=== PATIENT | female | born 1945 | race Caucasian/White ===

== ENCOUNTER 2018-04-11 12:47 | Inpatient (IN) | payer MEDICARE, BC ==
[2018-04-11] MEDS ORDERED: CEFAZOLIN 2 GM/50 ML BAG ONE (14:41)
[2018-04-11] MEDS ORDERED: Morphine 4 MG/ML VIAL ONE (15:41)
[2018-04-11] MEDS ORDERED: Fentanyl 100 MCG/2 ML VIAL ONE ×4 (16:02→18:30)
[2018-04-11] MEDS ORDERED: PROPOFOL 200 MG/20 ML VIAL ONE (16:33)
[2018-04-11] MEDS ORDERED: Ondansetron PF 4 MG/2 ML Vial ONE (16:33)
[2018-04-11] MEDS ORDERED: Lidocaine 1% PF 5 ML VIAL ONE (16:33)
[2018-04-11] MEDS ORDERED: Dexamethasone 20 MG/5 ML VIAL ONE (16:33)
[2018-04-11] MEDS ORDERED: ePHEDrine/0.9% NaCl/PF SYRINGE 50 mg/10 ml ONE (16:33)
[2018-04-11] MEDS ORDERED: Ondansetron HCl/PF 4 MG/2 ML Vial IVP PRN (17:41)
[2018-04-11] MEDS ORDERED: PACU-Morphine 4MG/ML VIAL SLOW IVP PRN (17:41)
--- NOTE | 2018-04-11 17:42 | RAD ---
LEFT KNEE TWO VIEWS: 04/11/18 HISTORY: Intraoperative films. Two films are presented for interpretation showing open reduction and internal fixation of a lateral tibial plateau fracture with plate and screws. Bony alignment appears satisfactory. IMPRESSION: Open reduction internal fixation of lateral plateau fracture. POS: RDAHIKA
[2018-04-11] MEDS ORDERED: Morphine 2 MG/ML SYRINGE IVP PRN (17:56)
[2018-04-11] MEDS ORDERED: traMADol HCl 50 MG TAB PO PRN ×2 (17:56)
[2018-04-11] MEDS ORDERED: Ondansetron PF 4 MG/2 ML Vial IV PRN (17:56)
[2018-04-11] MEDS ORDERED: HYDROcodone/Acetaminophen 5/325 mg Tablet PO PRN (17:56)
[2018-04-11] MEDS ORDERED: CEFAZOLIN/Water 2 GM/20 ML SYRINGE SLOW IVP SCH (18:00)
[2018-04-11] MEDS ORDERED: RENALLY ADJUST ALL ANTIBIOTICS FS SCH (18:00)
[2018-04-11] MEDS ORDERED: Morphine 2 MG/ML SYRINGE ONE (18:55)
[2018-04-11] MEDS: Aspirin 81 mg Enteric Coated Tablet PO SCH (21:02)
[2018-04-11 22:53] VITALS: BMI 25.2
[2018-04-12] MEDS: CEFAZOLIN 2 GM/50 ML BAG IVPB SCH ×2 (01:11→09:43)
[2018-04-12] MEDS: HYDROcodone/Acetaminophen 5/325 mg Tablet PO PRN ×2 (01:46→11:59)
[2018-04-12 06:12] LABS: #Lymphocytes 1.3 thou/uL (1.20-3.40); #Monocytes 0.6 thou/uL (0.11-0.59); #Neutrophils 5.5 thou/uL (1.40-6.50); %Basophils 0.5 % (0.0-1.0); %Eosinophils 0.1 % (0.0-10.0); %Lymphocytes 17.8 % (21.0-51.0); %Monocytes 7.9 % (0.0-10.0); %Neutrophils 73.7 % (42.0-75.0); Hemoglobin 11.8 g/dL (12.0-16.0); Mean Corpuscular HGB CONC 33.1 g/dL (32.0-36.0); Mean Corpuscular Hemoglobin 29.1 pg (27.0-31.0); Mean Corpuscular Volume 87.9 fL (78.0-98.0); Mean Platelet Volume 8.5 fL (7.4-10.4); Platelet Count 257 thou/uL (130-400); RBC Distribution Width 12.1 % (11.5-14.5); Red Blood Cell (RBC) Count 4.05 mill/uL (4.20-5.40); White Blood Cell (WBC) Count 7.4 thou/uL (4.8-10.8)
[2018-04-12] MEDS: Aspirin 81 mg Enteric Coated Tablet PO SCH (08:18)
--- NOTE | 2018-04-12 10:25 | OP ---
DATE OF PROCEDURE: 04/11/2018 PREOPERATIVE DIAGNOSIS: Left lateral tibial plateau fracture. POSTOPERATIVE DIAGNOSIS: Left lateral tibial plateau fracture. PROCEDURE PERFORMED: Open reduction and internal fixation of left lateral tibial plateau. ANESTHESIA: General. CLASSIFICATION CONTROL CLERK: Maggy Stafford PA-C TOURNIQUET TIME: 51 minutes at 300 mmHg. IMPLANTS: Synthes 4-hole proximal lateral tibial plateau plate with combination of cortical and locking screws. COMPLICATIONS: None. DRAINS: None. SPECIMEN: None. OUTCOME: Near-anatomic alignment. INDICATIONS FOR PROCEDURE: The patient is a pleasant 72-year-old lady, status post injury, at which time the dog struck her and she fell sustaining a lateral tibial plateau fracture with an 1 cm fracture gap, but without significant joint depression. After discussion with the patient including risks and benefits, we decided to proceed with open reduction and internal fixation. Informed consent has been obtained. I believe all questions were answered. DESCRIPTION OF PROCEDURE: The patient was brought to the operating room, and a time-out was performed, followed by induction of general anesthesia. Next, sterile prep and drape were performed of the left lower extremity. The limb was then exsanguinated with an Esmarch bandage. Tourniquet was inflated to 300 mmHg. Next, a curvilinear incision was made to the lateral side of the tibial crest and then curving posteriorly just under the joint surface of the lateral compartment. After the skin was sharply divided, dissection was carried down bluntly to the underlying fascia of the anterior compartment. This fascia was then divided just lateral to the crest of the tibia to allow for a sleeve of fascia for eventual closure. This fascial incision was then brought up and around just distal to the joint surface laterally. The anterior compartment was then reflected posteriorly gaining access to the lateral flare of the proximal tibia. At this point, finger could be brought anteriorly, and the full extent of the fracture gap could be easily palpated. On careful inspection of the radiographs, I did not appreciate any joint depression component, and as such, with just compression medial laterally, the fracture could be reduced, and on AP, lateral, and oblique C-arm images, found to be anatomically aligned. Once reduced, a 4-hole lateral tibial plateau plate was positioned along the lateral aspect of the tibial. This held in place provisionally with a K-wire, and then the clamp readjusted to incorporate the plate in this clamp. Next, a 4-mm rescue screw was placed in the distal most hole of the plate. This was then followed by insertion of 4 locking screws below the surface of the tibial plateau through the plate and into the medial plateau bone. Two additional oblique screws were then placed. At the completion of this, the lateral plateau appeared to be anatomically aligned with the fracture no longer visible. At this point, the wound was thoroughly irrigated with normal saline and closed in layers with 0 Vicryl for the fascia of the anterior compartment, 2-0 Vicryl subcutaneously, and then mini for the skin. A Xeroform gauze, Webril, Cornelius wrap, and knee immobilizer were applied to the knee, and then the patient was transferred to recovery room in stable condition. The tourniquet was let down at the completion of dressing with total time of 51 minutes. There were no complications. She tolerated the procedure well. Job ID: [id number]
[2018-04-12 16:07] VITALS: BP 118/74; TEMP 97.8
== END 2018-04-12 17:10 | disposition home or self-care (01) | DRG 494 ==
LOC: SDC 12:47 → SJJU 19:24
PROVIDERS: ADMIT Orthopaedic Surgery; ATTEND Orthopaedic Surgery
PROC: 0QSH04Z Reposition Left Tibia with Internal Fixation Device, Open Approach (ICD-10-PCS; principal; 2018-04-11)
DX: S82.142A Displaced bicondylar fracture of left tibia, initial encounter for closed fracture (principal); W18.09XA Striking against other object with subsequent fall, initial encounter; I10 Essential (primary) hypertension; M81.0 Age-related osteoporosis without current pathological fracture; K21.9 Gastro-esophageal reflux disease without esophagitis
CPT/HCPCS: 36415; 85025; C1713; G8978-GP-CK; G8978-GP-CM; G8979-GP-CJ; G8979-GP-CL; G8987-GO-CJ; G8988-GO-CI; J1100; J2001; J2270; J2405; J2704; J3010

== ENCOUNTER 2018-08-24 14:57 | Outpatient (CLI) | payer MEDICARE, BC ==
--- NOTE | 2018-08-24 16:12 | MMO ---
Bilateral MAMMO Bilat Screen [facility]. CLINICAL HISTORY: Patient is 72 years old and is seen for screening. The patient has the following family history of breast cancer: maternal aunt, malignant (generic), GREAT. The patient has a history of right Mastectomy at age 50 - malignant. VIEWS: The views performed were: left craniocaudal with tomosynthesis and left mediolateral oblique with tomosynthesis. FILMS COMPARED: The present examination has been compared to prior imaging studies performed at [facility] on 11/19/2011, 12/27/2013 and 06/14/2016. MAMMOGRAM FINDINGS: There are scattered fibroglandular densities. There are benign appearing calcifications in the left breast. There are no suspicious masses, suspicious calcifications, or new areas of architectural distortion. IMPRESSION: THERE IS NO MAMMOGRAPHIC EVIDENCE OF MALIGNANCY. A ROUTINE FOLLOW-UP MAMMOGRAM IN 1 YEAR IS RECOMMENDED. THE RESULTS OF THIS EXAM WERE SENT TO THE PATIENT. ACR BI-RADS Category 2 - Benign finding MAMMOGRAPHY NOTE: 1. A negative mammogram report should not delay a biopsy if a dominant of clinically suspicious mass is present. 2. Approximately 10% to 15% of breast cancers are not detected by mammography. 3. Adenosis and dense breasts may obscure an underlying neoplasm.
--- NOTE | 2018-08-24 17:45 | BD ---
BONE DENSITOMETRY USING DEXA: HISTORY: Postmenopausal screening for osteoporosis. FINDINGS: LUMBAR SPINE BMD (g/cm2) T-SCORE Z-SCORE L1 0.754 -2.1 -0.2 L2 0.800 -2.1 0.1 L3 0.875 -1.9 0.3 L4 0.929 -1.2 1.1 TOTAL 0.855 -1.7 0.4 NECK 0.571 -2.5 0.7 TOTAL 0.756 -1.5 0.0 There has been an interval improvement of 6.9% in the BMD of the lumbar spine and an improvement of 8 .3% in the BMD of the proximal femur since 06/14/2016. IMPRESSION: Osteoporosis. POS: OFF
== END 2018-08-24 14:58 | disposition home or self-care (01) ==
LOC: BICMAMMO 14:57
PROVIDERS: ATTEND Nurse Practitioner
DX: Z12.31 Encounter for screening mammogram for malignant neoplasm of breast (principal); M81.0 Age-related osteoporosis without current pathological fracture; Z80.3 Family history of malignant neoplasm of breast; Z90.11 Acquired absence of right breast and nipple
CPT/HCPCS: 77063; 77067; 77080

== ENCOUNTER 2020-10-22 14:32 | Outpatient (CLI) | payer MEDICARE, BC | END 2020-10-22 14:33 | disposition home or self-care (01) | LOC: BICMAMMO 14:32 | PROVIDERS: ATTEND Nurse Practitioner | DX: Z12.31 Encounter for screening mammogram for malignant neoplasm of breast (principal); M81.0 Age-related osteoporosis without current pathological fracture; M85.89 Other specified disorders of bone density and structure, multiple sites; Z80.3 Family history of malignant neoplasm of breast; Z85.3 Personal history of malignant neoplasm of breast; Z90.11 Acquired absence of right breast and nipple | CPT/HCPCS: 77063; 77067; 77080 ==

== ENCOUNTER 2022-06-22 11:18 | Outpatient (CLI) | payer MEDICARE, BC | END 2022-06-22 11:19 | disposition home or self-care (01) | LOC: BICMAMMO 11:18 | PROVIDERS: ATTEND Internal Medicine Rheumatology | DX: M81.0 Age-related osteoporosis without current pathological fracture (principal); M85.851 Other specified disorders of bone density and structure, right thigh | CPT/HCPCS: 77080 ==